=== PATIENT | female | born 1965 | race Caucasian/White ===

== ENCOUNTER 2020-01-26 11:31 | Emergency (ER) | payer OTHER ==
[~2020-01-26] VITALS: Ht 160 cm; Wt 66.2 kg
[2020-01-26] MEDS ORDERED: TESSALON PERLE100 MG PO (13:35)
[2020-01-26] MEDS ORDERED: ZOFRAN ODT4 MG DISSOLVE (13:35)
[2020-01-26 14:03] VITALS: BP 109/73
== END 2020-01-26 14:03 | disposition home or self-care (01) ==
LOC: ER 11:31
DX: B34.9 Viral infection, unspecified (principal); Z03.818 Encounter for observation for suspected exposure to other biological agents ruled out